=== PATIENT | female | born 1970 | race Asian ===

== ENCOUNTER 2017-06-24 03:39 | Observation (INO) | payer BC ==
[2017-06-24] VITALS (7 sets, daily range): BP systolic 101–135; BP diastolic 60–88; PULSE 68–87; RESP 16–20; TEMP 97.9–98.2; O2SAT 96–100
[~2017-06-24] VITALS: Ht 160 cm; Wt 62.0 kg
[2017-06-24] MEDS ORDERED: LISI40TA PO (03:45)
[2017-06-24] MEDS ORDERED: SODIUM CHLOR 0.9% 1000 ML INJ 1,000 ML IV ONE (03:49)
--- NOTE | 2017-06-24 03:53 | PD ---
HPI Chief Complaint: GI Complaint Time Seen by Provider: 03:49 Travel History International Travel<30 days: No Contact w/Intl Traveler<30days: No Traveled to known affect area: No History of Present Illness HPI 47-year-old female presents to the emergency department by EMS transport for complaint of repetitive nausea vomiting diarrhea and intermittent crampy abdominal pain since 1 AM. Patient states at 8 PM she ate oysters with the rest of her family and by 10 PM did not fill while on the started having repetitive nausea vomiting diarrhea and crampy abdominal pain since 1 AM. Patient did receive 500 cc bolus by EMS during transport as well as Zofran 4 mg IV. Patient has had one additional episode of vomiting since receiving Zofran. Patient has had no fever or chills. Patient has had no chest pain or shortness of breath. Patient has had no dysuria frequency urgency flank pain or vaginal discharge or bleeding. Patient is concerned that she has food poisoning. No other persons are had the same food as her are symptomatic. No known well water ingestion or foreign travel. PFSH Past Medical History Narrative Medical Hypertension, alcohol ingestion; nursing notes reviewed Hypertension: Yes Tetanus Vaccination: Unknown Influenza Vaccination: Yes ?: Not LMP: 06-09-17 Past Surgical History Surgical History: No Previous Surgery Social History Alcohol Use: Yes (social) Tobacco Use: No Substance Use: No Allergies-Medications (Allergen,Severity, Reaction): Coded Allergies: Aspirin (Verified Allergy, Severe, Lethargy, 06/24/17) Reported Meds & Prescriptions Reported Meds & Active Scripts Active Reported Lisinopril 40 Mg Tab 40 Mg PO DAILY Review of Systems Except as stated in HPI: all other systems reviewed are Neg General / Constitutional: No: Fever, Chills HENT: No: Congestion Cardiovascular: No: Chest Pain or Discomfort, Palpitations, Diaphoresis, Dyspnea on exertion Respiratory: No: Shortness of Breath Gastrointestinal: Positive: Nausea, Vomiting, Diarrhea, Abdominal Pain Genitourinary: No: Dysuria, Flank Pain Musculoskeletal: No: Myalgias, Arthralgias Skin: No Rash Neurologic: No: Weakness Psychiatric: No: Anxiety Hematologic/Lymphatic: No: Lymph Node Enlargement Physical Exam Narrative GENERAL: Well-developed well-nourished female in no acute distress no respiratory distress SKIN: Warm and dry. HEAD: Normocephalic. EYES: No scleral icterus. No injection or drainage. NECK: Supple, trachea midline. No JVD or lymphadenopathy. CARDIOVASCULAR: Regular rate and rhythm without murmurs, gallops, or rubs. RESPIRATORY: Breath sounds equal bilaterally. No accessory muscle use. GASTROINTESTINAL: Abdomen soft, mildly diffusely tender to palpation without guarding or rebound positive active bowel sounds, nondistended. MUSCULOSKELETAL: No cyanosis, or edema. BACK: Nontender without obvious deformity. No CVA tenderness. Data Data Last Documented VS Vital Signs Date Time Temp Pulse Resp B/P Pulse Ox O2 Delivery O2 Flow Rate FiO2 06/24/17 06:00 87 16 114/71 96 Room Air 06/24/17 03:41 97.9 Orders Complete Blood Count With Diff (06/24/17 03:49) Comprehensive Metabolic Panel (06/24/17 03:49) Urinalysis - C+S If Indicated (06/24/17 03:49) Lipase (06/24/17 03:49) Iv Access Insert/Monitor (06/24/17 03:49) Ecg Monitoring (06/24/17 03:49) Oximetry (06/24/17 03:49) Ondansetron Inj (Zofran Inj) (06/24/17 04:00) Sodium Chlor 0.9% 1000 Ml Inj (Ns 1000 M (06/24/17 03:49) Sodium Chloride 0.9% Flush (Ns Flush) (06/24/17 04:00) Enteric Path (Stool) (06/24/17 03:49) Ed Urine Pregnancytest Poc (06/24/17 03:49) Morphine Inj (Morphine Inj) (06/24/17 04:00) Electrocardiogram (06/24/17 ) Ct Abd/Pel W Iv Contrast(Rout) (06/24/17 ) Magnesium (Mg) (06/24/17 04:30) Iohexol 350 Inj (Omnipaque 350 Inj) (06/24/17 05:48) Labs Laboratory Tests Test 06/24/17 06/24/17 04:15 04:30 Urine Color YELLOW Urine Turbidity CLEAR Urine pH 6.0 Urine Specific [place] 1.024 Urine Protein NEG mg/dL Urine Glucose (UA) NEG mg/dL Urine Ketones NEG mg/dL Urine Occult Blood TRACE Urine Nitrite NEG Urine Bilirubin NEG Urine Leukocyte Esterase NEG Urine RBC 0-3 /hpf Urine Squamous Epithelial 0-5 /hpf Cells Urine Mucus OCC /lpf Urine Yeast (Budding) RARE Microscopic Urinalysis Comment CULT NOT INDICATED White Blood Count 22.6 TH/MM3 Red Blood Count 4.79 MIL/MM3 Hemoglobin 14.0 GM/DL Hematocrit 40.3 % Mean Corpuscular Volume 84.1 FL Mean Corpuscular Hemoglobin 29.2 PG Mean Corpuscular Hemoglobin 34.8 % Concent Red Cell Distribution Width 12.7 % Platelet Count 233 TH/MM3 Mean Platelet Volume 8.6 FL Neutrophils (%) (Auto) 84.8 % Lymphocytes (%) (Auto) 5.3 % Monocytes (%) (Auto) 8.3 % Eosinophils (%) (Auto) 0.7 % Basophils (%) (Auto) 0.9 % Neutrophils # (Auto) 19.1 TH/MM3 Lymphocytes # (Auto) 1.2 TH/MM3 Monocytes # (Auto) 1.9 TH/MM3 Eosinophils # (Auto) 0.2 TH/MM3 Basophils # (Auto) 0.2 TH/MM3 CBC Comment DIFF FINAL Differential Comment Sodium Level 140 MEQ/L Potassium Level 3.6 MEQ/L Chloride Level 106 MEQ/L Carbon Dioxide Level 25.1 MEQ/L Anion Gap 9 MEQ/L Blood Urea Nitrogen 30 MG/DL Creatinine 0.93 MG/DL Estimat Glomerular Filtration 64 ML/MIN Rate Random Glucose 86 MG/DL Calcium Level 9.1 MG/DL Magnesium Level 1.7 MG/DL Total Bilirubin 0.8 MG/DL Aspartate Amino Transf 16 U/L (AST/SGOT) Alanine Aminotransferase 19 U/L (ALT/SGPT) Alkaline Phosphatase 53 U/L Total Protein 8.0 GM/DL Albumin 4.0 GM/DL Lipase 277 U/L [facility] Medical Decision Making Medical Screen Exam Complete: Yes Emergency Medical Condition: Yes Medical Record Reviewed: Yes Interpretation(s) CBC & BMP Diagram 06/24/17 04:30 Vital Signs Date Time Temp Pulse Resp B/P Pulse Ox O2 Delivery O2 Flow Rate FiO2 06/24/17 04:43 82 16 101/60 98 Room Air 06/24/17 04:43 16 06/24/17 03:52 98 Room Air 06/24/17 03:41 97.9 72 18 135/88 100 poc hcg: negative ua: sg 1.024, wnl lft's/lipase: wnl ekg: Normal sinus rhythm rate [address] elevation or injury pattern change CT abd/pel: CONCLUSION: 1. There is a mild degree of wall thickening of the distal ileum without surrounding inflammation. This could represent an enteritis. 2. Appendix measures up to 8 mm in diameter but no periappendiceal inflammation is present. 3. Lobulated uterus with at least one exophytic mass measuring 2.8 cm, most likely representing uterine fibroid. Chase Delgado MD on June 24, 2017 at 6:13 Board Certified Radiologist. This report was verified electronically. Differential Diagnosis Gastroenteritis, food poisoning, viral syndrome, dehydration, electronic disturbance, UTI Narrative Course IV access obtained via EMS patient administered liter saline bolus along with Zofran 4 mg IV will also add morphine 3 mg IV for persistent complaint of crampy abdominal pain; specimen was collected and sent for resulting Patient noticing feeling clinically improved continues to complain of abdomen to the epigastrium and right lower quadrant and umbilical area without guarding or rebound Patient given additional IV fluids White count 22,000 most likely reflective of stress demargination, volume depletion, and probable inflammatory response with consideration for possible infectious etiology; CT abdomen and pelvis ordered CT abdomen and pelvis remarkable for distal small intestine inflammation wall thickening concerning for enteritis Patient reexamined remains tender in the epigastrium and right lower quadrant with specific gravity of 1.024; patient has received a one-time dose of morphine 3 mg IV at this point time would recommend observation status to see if symptoms resolved completely and allow pain medication to clear for reassessment due to area of discomfort relative to CT findings. Patient agreeable to observation stay. Will be kept nothing by mouth. Sepsis Criteria SIRS Criteria (2 or more): WBC > 35736, < 4000 or > 10% bands Physician Communication Physician Communication discused with Dr Barlow ---obs bowel rest/hydration Diagnosis Primary Impression: Gastroenteritis Additional Impression: Enteritis Admitting Information Admitting Physician Requests: Observation Shaylee Engel MD Jun 24, 2017 03:53
[2017-06-24] MEDS ORDERED: MORPHINE SULFATE 8 MG/ML INJ IV PUSH ONE (04:00)
[2017-06-24] MEDS ORDERED: ONDANSETRON HCL 4 MG/2 ML VIAL IVP ONE (04:00)
[2017-06-24] MEDS ORDERED: SODIUM CHLORIDE 0.9% FLUSH 10 ML FLUSH IVF PRN ×2 (04:00→06:45)
[2017-06-24 04:42] LABS: AUTOMATED NEUTROPHIL # 19.1 TH/MM3 (1.8-7.7); BASOPHIL # 0.2 TH/MM3 (0-0.2); BASOPHIL % 0.9 % (0.0-2.0); EOSINOPHIL # 0.2 TH/MM3 (0-0.4); EOSINOPHIL % 0.7 % (0.0-4.0); HEMATOCRIT 40.3 % (35.0-46.0); HEMO FLAGS DIFF FINAL; LYMPH % 5.3 % (9.0-44.0); LYMPHOCYTE # 1.2 TH/MM3 (1.0-4.8); MEAN CELL VOLUME 84.1 FL (80.0-100.0); MEAN CORPUSCULAR HEMOGLOBIN 29.2 PG (27.0-34.0); MEAN CORPUSCULAR HGB CONC 34.8 % (32.0-36.0); MONO % 8.3 % (0.0-8.0); NEUT % 84.8 % (16.0-70.0); PLATELET COUNT 233 TH/MM3 (150-450); RED BLOOD COUNT 4.79 MIL/MM3 (4.00-5.30); RED CELL DISTRIBUTION WIDTH 12.7 % (11.6-17.2); WHITE BLOOD COUNT 22.6 TH/MM3 (4.0-11.0)
[2017-06-24 05:00] LABS: CHLORIDE 106 MEQ/L (98-107); POTASSIUM 3.6 MEQ/L (3.5-5.1); SODIUM (NA) 140 MEQ/L (136-145)
[2017-06-24 05:04] LABS: ANION GAP 9 MEQ/L (5-15); BICARBONATE 25.1 MEQ/L (21.0-32.0); BLOOD UREA NITROGEN 30 MG/DL (7-18)
[2017-06-24 05:07] LABS: ALT (GPT) 19 U/L (10-53); AST (GOT) 16 U/L (15-37); GLOMERULAR FILTRATION RATE 64 ML/MIN (>89)
[2017-06-24 05:07] LABS: BLOOD, URINE TRACE (NEG); GLUCOSE,URINE NEG (NEG); KETONE, URINE NEG (NEG); NITRITE,URINE NEG (NEG)
[2017-06-24 05:08] LABS: TOTAL BILIRUBIN ADULT 0.8 MG/DL (0.2-1.0)
[2017-06-24 05:10] LABS: ALKALINE PHOSPHATASE 53 U/L (45-117)
[2017-06-24 05:13] LABS: URINE COLOR YELLOW (YELLW/STRAW)
[2017-06-24 05:14] LABS: MUCUS URINE OCC /lpf (OCC); SQUAMOUS EPITHELIAL CELL URINE 0-5 /hpf (0-5)
[2017-06-24 05:17] LABS: COMMENT (UR) CULT NOT INDICATED; CULTURE IF INDICATED CULT NOT INDICATED; RBC, URINE 0-3 /hpf (0-3)
[2017-06-24 05:48] LABS: MAGNESIUM 1.7 MG/DL (1.5-2.5)
[2017-06-24] MEDS ORDERED: IOHEXOL 350 MG/ML 10 ML VIAL (for RAD DIAG) IV ONE (05:48)
--- NOTE | 2017-06-24 06:19 | RADRPT ---
EXAM DATE/TIME: 06/24/2017 05:29 [place] COMPARISON: No previous studies available for comparison. INDICATIONS : Abdominal pain. Nausea. Vomiting. IV CONTRAST: 100 cc Omnipaque 350 (iohexol) IV ORAL CONTRAST: No oral contrast ingested. RADIATION DOSE: 8.10 CTDIvol (mGy) MEDICAL HISTORY : None SURGICAL HISTORY : None. ENCOUNTER: Initial ACUITY: 1 day PAIN SCALE: 9/10 LOCATION: Bilateral upper quadrant lower quadrant. TECHNIQUE: Volumetric scanning of the abdomen and pelvis was performed. Using automated exposure control and ad justment of the mA and/or kV according to patient size, radiation dose was kept as low as reasonably achievable to obtain optimal diagnostic quality images. DICOM format image data is available electro nically for review and comparison. FINDINGS: LOWER LUNGS: The visualized lower lungs are clear. LIVER: Homogeneous density without lesion. There is no dilation of the biliary tree. No calcified gallston es. SPLEEN: Normal size without lesion. PANCREAS: Within normal limits. KIDNEYS: Normal in size and shape. There is no mass, stone or hydronephrosis. There is an incidental 6 mm low -density lesion in the right mid kidney that is too small to characterize. 2 additional cysts are pre sent in the right kidney measuring up to 3.2 cm. There is also a 9 mm cyst at the upper pole the left kidney. ADRENAL GLANDS: Within normal limits. VASCULAR: There is no aortic aneurysm. BOWEL/MESENTERY: Stomach and proximal small bowel demonstrate no abnormality. There may be a mild degree of wall thick ening of the distal ileum. Appendix measures up 8 mm in diameter and is filled with fluid density mat erial but no periappendiceal inflammation is seen. No colon abnormality is identified. There is no f ree intraperitoneal air or fluid. ABDOMINAL WALL: Within normal limits. RETROPERITONEUM: There is no lymphadenopathy. BLADDER: No wall thickening or mass. REPRODUCTIVE: Uterus is retroflexed and demonstrates a lobular contour with exophytic partially calcified mass dwain uring 2.8 cm. INGUINAL: There is no lymphadenopathy or hernia. MUSCULOSKELETAL: There are degenerative changes of the lumbar spine. CONCLUSION: 1. There is a mild degree of wall thickening of the distal ileum without surrounding inflammation. Th is could represent an enteritis. 2. Appendix measures up to 8 mm in diameter but no periappendiceal inflammation is present. 3. Lobulated uterus with at least one exophytic mass measuring 2.8 cm, most likely representing uteri ne fibroid. Chase Delgado MD on June 24, 2017 at 6:13 Board Certified Radiologist. This report was verified electronically.
[2017-06-24] MEDS ORDERED: SODIUM CHLOR 0.9% 1000 ML INJ 1,000 ML IV SCH (06:44)
[2017-06-24] MEDS ORDERED: SODIUM CHLORIDE 0.9% FLUSH 10 ML FLUSH IV FLUSH PRN (06:45)
[2017-06-24] MEDS ORDERED: NALOXONE HCL 0.4 MG/ML AMP IV PRN (06:45)
[2017-06-24] MEDS ORDERED: ONDANSETRON HCL 4 MG/2 ML VIAL IVP PRN (06:45)
[2017-06-24] MEDS ORDERED: MORPHINE SULFATE 4 MG/ML INJ IV PUSH PRN (07:00)
[2017-06-24] MEDS ORDERED: SODIUM CHLORIDE 0.9% FLUSH 10 ML FLUSH IV FLUSH SCH ×2 (09:00)
--- NOTE | 2017-06-24 11:49 | EKG ---
Date Performed: 06/24/2017 Time Performed: 05:27:26 PTAGE: 47 years EKG: Sinus rhythm LOW QRS VOLTAGE IN PRECORDIAL LEADS BORDERLINE ECG NO PREVIOUS TRACING DOCTOR: Moshe Sanchez Interpretating Date/Time 06/24/2017 11:47:53
[2017-06-24 13:02] LABS: AUTOMATED NEUTROPHIL # 10.9 TH/MM3 (1.8-7.7); BASOPHIL % 0.3 % (0.0-2.0); EOSINOPHIL # 0.1 TH/MM3 (0-0.4); HEMATOCRIT 37.6 % (35.0-46.0); HEMO FLAGS DIFF FINAL; LYMPH % 13.6 % (9.0-44.0); LYMPHOCYTE # 1.9 TH/MM3 (1.0-4.8); MEAN CELL VOLUME 84.5 FL (80.0-100.0); MEAN CORPUSCULAR HEMOGLOBIN 29.1 PG (27.0-34.0); MEAN CORPUSCULAR HGB CONC 34.5 % (32.0-36.0); MONO % 7.4 % (0.0-8.0); NEUT % 77.7 % (16.0-70.0); PLATELET COUNT 223 TH/MM3 (150-450); RED BLOOD COUNT 4.45 MIL/MM3 (4.00-5.30); RED CELL DISTRIBUTION WIDTH 13.1 % (11.6-17.2); WHITE BLOOD COUNT 13.9 TH/MM3 (4.0-11.0)
[2017-06-24 13:12] LABS: POTASSIUM 3.4 MEQ/L (3.5-5.1)
[2017-06-24 13:15] LABS: BICARBONATE 24.7 MEQ/L (21.0-32.0)
[2017-06-24] MEDS ORDERED: POTASSIUM CHLORIDE 10 MEQ CONTROLLED RELEASE TAB PO ONE (14:00)
--- NOTE | 2017-06-24 14:02 | HHI.HP ---
[facility] Non-Staff Admission Diagnosis abdominal pain; enteritis/gastroenteritis Diagnoses: Travel History International Travel<30 Days: No Contact w/Intl Traveler <30 Da: No Traveled to Known Affected Are: No History of Present Illness 47-year-old female with a history of hypertension, who presents with nonbloody nausea, vomiting, profuse watery diarrhea, together with intermittent crampy abdominal pain starting around 1 AM. She had oysters last night. She denies any chest pain or shortness of breath. She said she had chills, however no fevers. Patient seen in the ER around 1 PM today. Says she feels much better. Has been walking around. Reports abdominal pain resolved. No nausea currently. She feels like going home. Review of Systems Performed and negative except for history of present illness and past medical history. Past Family Social History Past Medical History Hypertension Past Surgical History Bilateral tubal ligation Reported Medications Reported Meds & Active Scripts Active Reported Lisinopril 40 Mg Tab 40 Mg PO DAILY Allergies: Coded Allergies: Aspirin (Verified Allergy, Severe, Lethargy, 06/24/17) Family History Mother is healthy. Father from heart attack at age 62 Social History Nonsmoker. Social alcohol use. Denies illicit drugs. Physical Exam Vital Signs Vital Signs Date Time Temp Pulse Resp B/P Pulse Ox O2 Delivery O2 Flow Rate FiO2 06/24/17 13:02 68 20 102/69 98 06/24/17 11:33 72 20 111/64 98 Room Air 06/24/17 07:36 98.2 84 18 111/73 97 Room Air 06/24/17 06:00 87 16 114/71 96 Room Air 06/24/17 04:43 82 16 101/60 98 Room Air 06/24/17 04:43 16 06/24/17 03:52 98 Room Air 06/24/17 03:41 97.9 72 18 135/88 100 Physical Exam GENERAL: This is a well-nourished, well-developed patient, in no apparent distress. alert and oriented 3. SKIN: No rashes, ecchymoses or lesions. Cool and dry. HEAD: Atraumatic. Normocephalic. No temporal or scalp tenderness. EYES: Pupils equal round and reactive. Extraocular motions intact. No scleral icterus. No injection or drainage. ENT: Nose without bleeding, purulent drainage or septal hematoma. Throat without erythema, tonsillar hypertrophy or exudate. Uvula midline. Airway patent. NECK: Trachea midline. No JVD or lymphadenopathy. Supple, nontender, no meningeal signs. CARDIOVASCULAR: Regular rate and rhythm without murmurs, gallops, or rubs. RESPIRATORY: Clear to auscultation. Breath sounds equal bilaterally. No wheezes , rales, or rhonchi. GASTROINTESTINAL: Abdomen soft, non-tender, nondistended. No hepato-splenomegaly , or palpable masses. No guarding. MUSCULOSKELETAL: Extremities without clubbing, cyanosis, or edema. No joint tenderness, effusion, or edema noted. No calf tenderness. Negative Homans sign bilaterally. NEUROLOGICAL: Awake and alert. Cranial nerves II through XII intact. Motor and sensory grossly within normal limits. Five out of 5 muscle strength in all muscle groups. Normal speech. Laboratory Laboratory Tests Test 06/24/17 06/24/17 06/24/17 04:15 04:30 12:50 Urine Color YELLOW Urine Turbidity CLEAR Urine pH 6.0 Urine Specific [place] 1.024 Urine Protein NEG Urine Glucose (UA) NEG Urine Ketones NEG Urine Occult Blood TRACE Urine Nitrite NEG Urine Bilirubin NEG Urine Leukocyte Esterase NEG Urine RBC 0-3 Urine Squamous Epithelial 0-5 Cells Urine Mucus OCC Urine Yeast (Budding) RARE Microscopic Urinalysis Comment CULT NOT INDICATED White Blood Count 22.6 13.9 Red Blood Count 4.79 4.45 Hemoglobin 14.0 13.0 Hematocrit 40.3 37.6 Mean Corpuscular Volume 84.1 84.5 Mean Corpuscular Hemoglobin 29.2 29.1 Mean Corpuscular Hemoglobin 34.8 34.5 Concent Red Cell Distribution Width 12.7 13.1 Platelet Count 233 223 Mean Platelet Volume 8.6 7.9 Neutrophils (%) (Auto) 84.8 77.7 Lymphocytes (%) (Auto) 5.3 13.6 Monocytes (%) (Auto) 8.3 7.4 Eosinophils (%) (Auto) 0.7 1.0 Basophils (%) (Auto) 0.9 0.3 Neutrophils # (Auto) 19.1 10.9 Lymphocytes # (Auto) 1.2 1.9 Monocytes # (Auto) 1.9 1.0 Eosinophils # (Auto) 0.2 0.1 Basophils # (Auto) 0.2 0.0 CBC Comment DIFF FINAL DIFF FINAL Differential Comment Sodium Level 140 141 Potassium Level 3.6 3.4 Chloride Level 106 109 Carbon Dioxide Level 25.1 24.7 Anion Gap 9 7 Blood Urea Nitrogen 30 19 Creatinine 0.93 0.79 Estimat Glomerular Filtration 64 78 Rate Random Glucose 86 85 Calcium Level 9.1 8.4 Magnesium Level 1.7 Total Bilirubin 0.8 Aspartate Amino Transf 16 (AST/SGOT) Alanine Aminotransferase 19 (ALT/SGPT) Alkaline Phosphatase 53 Total Protein 8.0 Albumin 4.0 Lipase 277 Date/Time Procedure Status Source Growth 06/24/17 09:14 Received Stool Stool Pending Result Diagram: 06/24/17 1250 06/24/17 1250 Imaging Last Impressions Abdomen/Pelvis CT 06/24/17 0000 Signed Impressions: Service Date/Time: Saturday, June 24, 2017 05:29 - CONCLUSION: 1. There is a mild degree of wall thickening of the distal ileum without surrounding inflammation. This could represent an enteritis. 2. Appendix measures up to 8 mm in diameter but no periappendiceal inflammation is present. 3. Lobulated uterus with at least one exophytic mass measuring 2.8 cm, most likely representing uterine fibroid. Chase Delgado MD Assessment and Plan Assessment and Plan /Gastroenteritis -With marketed leukocytosis. -Likely secondary to oyster ingestion -CT abdomen with slight distal ileal inflammation. -Appears to be resolved. Discharge home. Follow-up closely with primary care. //Leukocytosis. Initially in the 30s, however subsequently 13. This is likely secondary to nausea, vomiting, as well as food poisoning. Expect to improve. Follow-up primary care.// //Hypertension. Blood pressure appears acceptable. We'll hold FEI inhibitor in the setting of dehydration. Follow-up with primary care. //Prophylaxis. Patient is ambulatory. Discussed Condition With Patient, nurse Sammy Bhatia MD Jun 24, 2017 14:02
== END 2017-06-24 15:06 | disposition home or self-care (01) ==
LOC: PHED 03:39 → PHEDA 06:46
PROVIDERS: ADMIT Internal Medicine; ATTEND Internal Medicine
DX: K52.9 Noninfective gastroenteritis and colitis, unspecified (principal); R11.2 Nausea with vomiting, unspecified; I10 Essential (primary) hypertension; D72.829 Elevated white blood cell count, unspecified; Z79.899 Other long term (current) drug therapy
CPT/HCPCS: 74177; 80048; 80053; 81001; 83690; 83735; 84703; 85025; 87506; 93005; 96361; 96374; 96375; 99285; G0378; J2270; J2405; J7030; Q9967